=== PATIENT | female | born 1995 | race Caucasian/White ===

== ENCOUNTER 2017-12-03 20:28 | Emergency (ER) | payer SELFPAY ==
[~2017-12-03] VITALS: Ht 162.6 cm; Wt 69.8 kg
[2017-12-03 20:34] VITALS: Ht 162.6 cm; Wt 69.8 kg
[2017-12-03 22:36] VITALS: BP 107/75
== END 2017-12-03 22:36 | disposition home or self-care (01) ==
LOC: ED 20:28
DX: S97.122A Crushing injury of left lesser toe(s), initial encounter (principal); W22.8XXA Striking against or struck by other objects, initial encounter; Y93.01 Activity, walking, marching and hiking; Y99.8 Other external cause status; Y92.89 Other specified places as the place of occurrence of the external cause